=== PATIENT | male | born 1970 | race Hispanic/Latino ===

== ENCOUNTER 2016-12-18 19:33 | Emergency (ER) | payer OTHER ==
[~2016-12-18] VITALS: Ht 160 cm; Wt 70.0 kg
[2016-12-18] MEDS ORDERED: LISI10TA4 PO (19:52)
[2016-12-18 20:33] LABS: BASO # 0.1 10^3/uL (0.0-0.2); BASO % 0.5 % (0.0-1.0); EOS # 0.1 10^3/uL (0.0-0.50); EOS % 0.9 % (0.0-3.0); IMMATURE GRANULOCYTE % 0.5 % (0-0); LYMPH # 1.8 10^3/uL (1.5-4.5); LYMPH % 11.7 % (24.0-44.0); MEAN CORPUSCULAR HEMOGLOBIN 27.5 pg (27.0-33.0); MEAN CORPUSCULAR VOLUME 83.4 fl (80.0-96.0); MONO # 0.9 10^3/uL (0.0-0.8); MONO % 5.9 % (0.0-5.0); NEUTROPHILS # 12.3 10^3/uL (1.8-7.7); NEUTROPHILS % 80.5 % (36.0-66.0); PLATELET COUNT, AUTOMATED 370 10^3/uL (150-450); RED CELL DISTRIBUTION WIDTH 13.2 % (11.5-14.5); WHITE BLOOD COUNT 15.3 10^3/uL (4.0-10.0)
[2016-12-18 20:42] LABS: INR 0.88
[2016-12-18 20:58] LABS: ANION GAP 5 MEQ/L (8-16); BLOOD UREA NITROGEN 18 MG/DL (7-18); CALCIUM LEVEL 9.3 MG/DL (8.5-10.1); CARBON DIOXIDE LEVEL 33 MEQ/L (21-32); CHLORIDE LEVEL 101 MEQ/L (98-107); CREATININE FOR GFR 1.03 MG/DL (0.70-1.30); GLOMERULAR FILTRATION RATE > 60.0 (>60); GLUCOSE, FASTING 87 MG/DL (70-105); POTASSIUM SERUM 4.2 MEQ/L (3.5-5.1); SODIUM LEVEL 139 MEQ/L (136-145)
[2016-12-18] MEDS ORDERED: MAGNESIUM CITRATE 300 ML BTL PO ONE (22:45)
[2016-12-18] MEDS ORDERED: ASPIRIN 81 MG CHEW TABLET PO ONE (22:45)
[2016-12-19 00:47] VITALS: BP 145/86
--- NOTE | 2016-12-19 08:10 | ECGEPIP ---
Stationary ECG Study [facility] - ED Test Date: 2016-12-18 Pat Name: ABI CASTANO Department: Room: - Gender: M [employer]: amanda : 1970 Requested By: SAMIA Madrigal Order Number: [id number] Reading MD: Cee Rene Measurements Intervals [place] Rate: 80 P: 25 MI: 164 QRS: 40 QRSD: 110 T: 6 QT: 377 QTc: 437 Interpretive Statements SINUS RHYTHM WITH SINUS ARRHYTHMIA NONSPECIFIC T-WAVE ABNORMALITY NO PRIOR FOR COMPARISON Electronically Signed On 12-19-2016 8:10:24 EDT by Cee Rene
--- NOTE | 2016-12-19 09:17 | REP ---
Acute abdominal series three views including PA chest and supine upright abdomen: There are no comparisons. PA chest: The lung jean are clear. The cardiac size is normal The nikhil, mediastinum, and bony thorax are unremarkable. Impression: Negative PA and lateral chest. There is no free subdiaphragmatic air. Abdomen, supine upright views: The bowel gas pattern is normal. There are no calcifications. Skeletal structures and soft tissues otherwise are unremarkable. Impression: Normal bowel gas pattern. An air-fluid level is incidentally noted in the gastric fundus Signed by Farncisco Bingham MD 12/19/2016 08:26 A
== END 2016-12-19 01:05 | disposition home or self-care (01) ==
LOC: EDBD 19:33 → M ED 19:33
DX: R07.89 Other chest pain (principal); K59.00 Constipation, unspecified; I10 Essential (primary) hypertension; G40.919 Epilepsy, unspecified, intractable, without status epilepticus; Z79.899 Other long term (current) drug therapy